=== PATIENT | female | born 1960 | race Caucasian/White ===

== ENCOUNTER 2019-04-20 20:37 | Emergency (ER) | payer BC, SELFPAY ==
[~2019-04-20] VITALS: Ht 162.6 cm; Wt 57.3 kg
[2019-04-20 20:38] VITALS: BP 145/91
--- NOTE | 2019-04-21 00:53 | REP ---
Clinical: Trauma. Fall. Technique: AP, lateral, bilateral oblique views of the left wrist. Findings: Nondisplaced transverse fracture of the distal radial metaphysis with overlying soft tissue swelling. Generalized age-related changes noted. Impression: Subtle nondisplaced transverse fracture of the distal radial metaphysis. Electronically Signed by Bhanu Eaton MD 04/21/2019 12:44 A
== END 2019-04-20 22:08 | disposition home or self-care (01) ==
LOC: M ED 20:37
DX: S52.502A Unspecified fracture of the lower end of left radius, initial encounter for closed fracture (principal); W01.0XXA Fall on same level from slipping, tripping and stumbling without subsequent striking against object, initial encounter; Y93.9 Activity, unspecified; Y92.9 Unspecified place or not applicable; Y99.9 Unspecified external cause status

== ENCOUNTER → 2019-11-04 | Outpatient (REF) | payer BC | LOC: M LAB REF 17:28 | PROVIDERS: ATTEND Dermatology | DX: L85.8 Other specified epidermal thickening (principal) ==